=== PATIENT | female | born 1990 | race Caucasian/White ===

== ENCOUNTER 2022-01-31 12:41 | Emergency (ER) | payer OTHER ==
[2022-01-31 15:03] LABS: BASOPHIL 0.6 % (0-2); EOSINOPHIL 0.5 % (0-5); HCT 35.7 % (37.0-47.0); HGB 11.8 g/dl (12.5-16.0); LYMPHOCYTE 12.3 % (15-48); MCHC 33.1 g/dL (32.0-36.0); MCV 84.6 fL (78.0-100.0); MONOCYTE 4.6 % (0-12); MPV 8.7 fL (6.0-9.5); NEUTROPHIL 80.9 % (41-80); NRBC 0; PLT 593 K/uL (150-400); RBC 4.22 M/uL (4.20-5.40); WBC 13.8 K/uL (4.0-10.5)
[2022-01-31 15:19] LABS: BUN/CREAT RATIO (CALC) 12.8 RATIO; CREATININE 0.94 mg/dL (0.51-0.95); POTASSIUM 3.7 mmol/L (3.5-5.1)
[2022-01-31 15:47] LABS: BILIRUBIN NEGATIVE (NEGATIVE); BLOOD 3+ Ery/uL (NEGATIVE); CLARITY CLOUDY (CLEAR); COLOR YELLOW (YELLOW); GLUCOSE (U) NORMAL (NORMAL); LEUKOCYTES 2+ Leu/uL (NEGATIVE); NITRITE NEGATIVE (NEGATIVE); PROTEIN 2+ mg/dL (NEGATIVE)
[2022-01-31 15:58] LABS: URINARY RBC TNTC; URINARY WBC TNTC
[2022-01-31 16:00] LABS: BACTERIA 3+
[2022-01-31 16:32] LABS: INR 0.96 (0.9-1.2); PROTHROMBIN TIME 12.2 SECONDS (11.8-13.4)
[2022-01-31 16:38] LABS: CORONAVIRUS 2019 SARS-COV-2 NEGATIVE (NEGATIVE); INFLUENZA A NAA NEGATIVE (NEGATIVE)
[2022-01-31 16:56] LABS: ALBUMIN 2.5 g/dL (3.4-5.0); ALKALINE PHOSHATASE 107 U/L (46-116); ALT 20 U/L (14-59); AST 27 U/L (15-37); BILIRUBIN - DIRECT <0.05 mg/dL (0.00-0.20); BILIRUBIN - TOTAL 0.3 mg/dL (0.2-1.0); GLOBULIN (CALCULATION) 4.4 g/dL; TOTAL PROTEIN 6.9 g/dL (6.4-8.2)
== END 2022-01-31 22:41 | disposition other institution (70) ==
LOC: FER 12:41
PROVIDERS: Emergency Medicine; Nurse Practitioner Family
DX: O99.53 Diseases of the respiratory system complicating the puerperium (principal); O90.3 Peripartum cardiomyopathy; J96.01 Acute respiratory failure with hypoxia; J81.1 Chronic pulmonary edema; Z20.822 Contact with and (suspected) exposure to COVID-19; Z28.310 Unvaccinated for COVID-19; Z87.891 Personal history of nicotine dependence
CPT/HCPCS: 36415; 71275; 80048; 80076; 81001; 83735; 83880; 85025; 85379; 85610; 87088; 93005; J2270; J3475; J7030; J7050; Q9967; U0002